=== PATIENT | female | born 1955 | race Caucasian/White ===

== ENCOUNTER 2017-11-10 12:23 | Day surgery (SDC) | payer OTHER ==
[~2017-11-10] VITALS: Ht 167.6 cm; Wt 61.0 kg
[~2017-11-10 12:23] MED LIST: ASPIR 8181 M1 PO; FOSAMAX70 MG PO; SOTALOL80 MG PO
== END 2017-11-10 16:04 | disposition home or self-care (01) ==
LOC: CATH 12:23
PROC: 0JH608Z Insertion of Defibrillator Generator into Chest Subcutaneous Tissue and Fascia, Open Approach (ICD-10-PCS; principal; 2017-11-10)
PROC: 0JPT0PZ Removal of Cardiac Rhythm Related Device from Trunk Subcutaneous Tissue and Fascia, Open Approach (ICD-10-PCS; principal; 2017-11-10)
DX: Z45.02 Encounter for adjustment and management of automatic implantable cardiac defibrillator (principal); I47.2 Ventricular tachycardia; I25.10 Atherosclerotic heart disease of native coronary artery without angina pectoris; I25.2 Old myocardial infarction
CPT/HCPCS: C1722; J0690; J1200; J2250; J3010; S0020